=== PATIENT | female | born 1965 | race Caucasian/White ===

== ENCOUNTER → 2018-10-07 15:38 | Outpatient (CLI) | payer OTHER, SELFPAY | PROVIDERS: Obstetrics & Gynecology; Family Provider Family Medicine; PCP Family Medicine; Visit Provider Family Medicine | DX: N95.1 Menopausal and female climacteric states (principal) | CPT/HCPCS: 36415; 83001 ==

== ENCOUNTER → 2020-11-08 16:15 | Outpatient (CLI) | payer OTHER, SELFPAY ==
[2020-11-08 18:33] LABS: Alanine Aminotransferase 29 IU/L (<35); Albumin 4.4 g/dL (3.5-5.0); Albumin Globulin Ratio 1.6 (1.0-2.8); Alkaline Phosphatase 78 U/L (38-126); Aspartate Aminotransferase 35 IU/L (14-36); BUN Creatinine Ratio 29.5 (6-22); Bilirubin Total 0.5 mg/dL (0.2-1.3); Blood Urea Nitrogen 28 mg/dL (7-17); Calcium 9.6 mg/dL (8.4-10.2); Carbon Dioxide 29 mmol/L (22-32); Chloride 95 mmol/L (98-107); Cholesterol 251 mg/dL (140-199); Estimated Glomerular Filt Rate > 60.0 mL/min (>60); Globulin 2.7 g/dL (1.7-4.1); Glucose 98 mg/dL (70-100); HDL Cholesterol 42 mg/dL (40-60); HEMOLYSIS < 15 (0-50); LDL Cholesterol Calculated 159 mg/dL (<100); Potassium 4.3 mmol/L (3.4-5.1); Sodium 133 mmol/L (137-145); Total Protein 7.1 g/dL (6.3-8.2); Triglycerides 251 mg/dL (35-150)
== END ==
PROVIDERS: Family Provider Family Medicine; PCP Family Medicine; Referring Provider Family Medicine; Visit Provider Family Medicine
DX: E55.9 Vitamin D deficiency, unspecified (principal); E78.1 Pure hyperglyceridemia; I10 Essential (primary) hypertension; R73.03 Prediabetes
CPT/HCPCS: 36415; 80053; 80061

== ENCOUNTER → 2020-12-20 15:35 | Outpatient (CLI) | payer OTHER, SELFPAY ==
[2020-12-20] MEDS: COVID-19 VACC #1, MRNA(MOD) 100 MCG/0.5 ML VIAL IM (15:45)
== END ==
PROVIDERS: Family Provider Family Medicine; PCP Family Medicine; Visit Provider Internal Medicine
DX: Z23 Encounter for immunization (principal)
CPT/HCPCS: 0011A; 91301

== ENCOUNTER → 2021-01-17 15:26 | Outpatient (CLI) | payer OTHER, SELFPAY ==
[2021-01-17] MEDS: COVID-19 VACC #2, MRNA(MOD) 100 MCG/0.5 ML VIAL IM (15:42)
== END ==
PROVIDERS: Family Provider Family Medicine; PCP Family Medicine; Visit Provider Internal Medicine
DX: Z23 Encounter for immunization (principal)
CPT/HCPCS: 0012A; 91301

== ENCOUNTER → 2021-02-14 16:19 | Outpatient (CLI) | payer OTHER, SELFPAY ==
--- NOTE | 2021-02-14 16:20 | DI.MG.S_ITS ---
BILATERAL DIGITAL SCREENING MAMMOGRAM 3D/2D WITH CAD: 02/14/2021 CLINICAL: Routine screening. Comparison is made to exams dated: 10/27/2017 mammogram and 09/13/2016 mammogram - [facility]. The tissue of both breasts is predominantly fatty. Current study was also evaluated with a Computer Aided Detection (CAD) system. There is a new fine calcification in the left breast sub-areolar depth central to the nipple seen on the craniocaudal view only. No other significant masses, calcifications, or other findings are seen in either breast. IMPRESSION: INCOMPLETE: NEEDS ADDITIONAL IMAGING EVALUATION The new fine calcification in the left breast is indeterminate. Magnification views are recommended. This exam was interpreted at Station ID: [id number]. NOTE: For mammograms, a report in lay terms will be sent to the patient. Approximately 15% of breast malignancies will not be visualized mammographically. In the management of a palpable breast mass, a negative mammogram must not discourage biopsy of a clinically suspicious lesion. Electronically Signed By: Vasile Benedict acr/:02/14/2021 17:06:04 letter sent: Additional Imaging Needed ACR BI-RADS Category 0: Incomplete 3340F
== END ==
PROVIDERS: Family Provider Family Medicine; PCP Family Medicine; Referring Provider Family Medicine; Visit Provider Family Medicine
DX: Z12.31 Encounter for screening mammogram for malignant neoplasm of breast (principal)
CPT/HCPCS: 77063; 77067

== ENCOUNTER → 2021-03-12 14:26 | Outpatient (CLI) | payer OTHER, SELFPAY ==
[2021-03-12 16:17] LABS: COVID19 -Nasal RAPID Negative (Negative)
== END ==
PROVIDERS: Family Provider Family Medicine; PCP Family Medicine; Visit Provider Surgery
DX: Z20.822 Contact with and (suspected) exposure to COVID-19 (principal)
CPT/HCPCS: 87635; C9803

== ENCOUNTER 2021-03-13 13:36 | Day surgery (SDC) | payer OTHER, SELFPAY ==
[2021-03-13] VITALS (7 sets, daily range): BP systolic 94–125; BP diastolic 53–76; PULSE 76–91; RESP 18–24; TEMP 36.8–37.5; O2SAT 80–98; BMI 42.3
[2021-03-13] MEDS: SODIUM CHLORIDE 0.9% 1,000 ML 200 ML IV (14:07)
--- NOTE | 2021-03-13 14:20 | PM.HP.1 ---
History of Present Illness History of Present Illness Date Patient Seen: 03/13/21 Time Patient Seen: 14:20 Chief complaint: SDC Narrative: This is a 55-year-old woman who is here for a 5 year follow-up colonoscopy due to family history of rectal cancer in her mother. This patient had a colonoscopy 6 years ago which was reportedly normal per the patient. She denies any new symptoms, specifically denies any melena, hematochezia, unexplained abdominal pain, unexplained weight loss. She has morbid obesity, and hypertension. She has sleep apnea. ROS: Thirteen system review is otherwise negative other than as mentioned below and in HPI. PE: GENERAL: Well groomed and cooperative. Morbidly obese Appears stated age. Answers questions promptly and appropriately. Vital signs noted. HENT: Normocephalic, atraumatic. Hearing intact. EYES: Conjunctiva pink, sclera white, no periorbital swelling. CARDIOVASCULAR: Regular rate. No pedal edema. RESPIRATORY: Non-tachypneic, breathing comfortably on room air. GASTROINTESTINAL: Abdomen soft and non-distended GENITALURINARY: No flank tenderness. MUSCULOSKELETAL: Equal tone and mass bilaterally. SKIN: Warm, dry, soft, appropriate color for ethnicity. No other lesions, rashes, or wounds. NEURO: Alert and Oriented X 3. No gross sensory deficits, or cognitive issues. PSYCH: Appropriate affect and mood. Patient History Medical History Abnormal Pap smear of cervix Basal cell carcinoma (BCC) of upper back (09/04/16) Chicken pox (1967) Genital warts Rosacea Scarlet fever (1982) Sleep apnea (2011) Surgical History Anesthesia History of basal cell carcinoma excision (09/04/16) History of colonoscopy (11/28/15) Status post tubal ligation (2004) Family & Social History Family History Father Prostate cancer Diabetes mellitus Hypertension High cholesterol COPD (chronic obstructive pulmonary disease) Grandfather Stroke Grandmother Diabetes mellitus Hypertension High cholesterol Heart attack Mother Age: 82 Colon cancer Diabetes mellitus Hypertension High cholesterol Grandmother Colon cancer Diabetes mellitus Hypertension High cholesterol Brother No problems noted. Brother No problems noted. Grandfather COPD (chronic obstructive pulmonary disease) Social History: household members significant other Tobacco & Substance use: Smoking Status Never smoker alcohol intake frequency holiday/special occasion Substance Use Type does not use Meds Home Medications and Allergies Home Medications Medication Instructions Recorded Confirmed Type timolol 0.5 %-dorzolamide 2 drp OPHTHALMIC (EYE) 11/13/20 03/12/21 History %-latanprost 0.005 % (PF) eye drops diclofenac sodium 50 mg See Rx Instructions .ROUTE 01/11/21 03/12/21 Rx tablet,delayed release .COMPLEX #60 tab lisinopril 20 See Rx Instructions .ROUTE 02/15/21 03/12/21 Rx mg-hydrochlorothiazide 12.5 mg .COMPLEX #90 tab tablet Allergies Allergy/AdvReac Type Severity Reaction Status Date / Time No Known Allergies Allergy Uncoded 03/12/21 14:25 Exam Vital Signs (past 8 hours): - 03/13/21 13:47 Temperature 98.9 F Pulse Rate 91 H Respiratory Rate 18 Blood Pressure 125/74 Pulse Oximetry 98 Oxygen Delivery Method Room Air Assessment & Plan Assessment and plan (1) Family history of colon cancer: Status: Acute Assessment & Plan narrative: Risks and benefits of screening colonoscopy and possible polypectomy were discussed with the patient including risk of bleeding, perforation, need for additional procedures, risks of anesthesia. The patient desires to proceed with the colonoscopy procedure. COVID-19 COVID-19 status: Negative Result date/Date tested (Pos, Neg/Pending): 03/12/21 Time Spent With Patient Time with patient: 15-24 minutes Quality VTE Deep Vein Thrombosis/Pulmonary Embolism Present on Admission: No
--- NOTE | 2021-03-13 14:22 | P.OP.ENDO_ITS ---
Operative Date/Time/Diagnoses Date of procedure: 03/13/21 Time of procedure: 14:22 Pre-op diagnosis: High risk family history colorectal cancer Post-op diagnosis: other ([id number] diverticulosis. No polyps found on today's exam.) Procedure & Clinicians Study performed: Colonoscopy Procedural sedation performed by the endoscopist Same procedure as scheduled: Yes Indications: High risk family history for colorectal cancer Surgeon: Cammy Eagle Procedure Notes SCOAP/Timeout: Performed Procedure in detail: The patient was brought to the room and placed in left lateral decubitus position with all bony prominences padded. A time-out was performed and then the patient was given procedural sedation starting with 4 mg of Versed and 100 mcg of fentanyl. An additional 2 mg of Versed and 50 micro g of fentanyl were given during the procedure. Vitals were monitored throughout the procedure and remained stable. Once adequately sedated, the procedure was begun. A rectal exam was performed revealing no abnormalities. The colonoscope was then introduced to the rectum and advanced to the cecum in the usual fashion. The cecum was identified by the appendiceal orifice, the mucosal tri- fold, and the ileocecal valve. Mild to moderate diverticulosis was seen in the descending and sigmoid colon. The scope was then retracted while rotating side to side and examining each mucosal fold. At the conclusion of the procedure retroflexion was performed and small grade 1-2 internal hemorrhoids without stigmata of bleeding were seen. The scope was then withdrawn from the rectum the procedure was concluded. The patient tolerated the procedure well and was transferred to the PACU in stable condition. Scope withdrawal time: 6 Findings: diverticulosis Specimen(s): none sent Complications: none Impression: No polyps. [id number] diverticulosis. Post-procedure Recommendations: Colonscopy in 5 years (Due to high risk family history) and High fiber diet Follow up: as needed Disposition: PACU
[2021-03-13] MEDS: MIDAZOLAM 5 MG/5 ML VIAL IV (14:30)
[2021-03-13] MEDS: fentaNYL 250 MCG/5 ML INJ IV (14:30)
== END 2021-03-13 15:17 | disposition home or self-care (01) ==
PROVIDERS: Family Provider Family Medicine; PCP Family Medicine; Referring Provider Surgery; Visit Provider Surgery
PROC: 0DJD8ZZ Inspection of Lower Intestinal Tract, Via Natural or Artificial Opening Endoscopic (ICD-10-PCS; CPT 45378; principal; 2021-03-13 14:30)
DX: Z12.11 Encounter for screening for malignant neoplasm of colon (principal); Z80.0 Family history of malignant neoplasm of digestive organs; G47.30 Sleep apnea, unspecified; K57.30 Diverticulosis of large intestine without perforation or abscess without bleeding; K64.0 First degree hemorrhoids
CPT/HCPCS: 45378; J2250; J3010

== ENCOUNTER → 2021-03-16 14:51 | Outpatient (CLI) | payer OTHER, SELFPAY ==
--- NOTE | 2021-03-16 | DI.MG.S_ITS ---
UNILATERAL LEFT DIGITAL DIAGNOSTIC MAMMOGRAM 3D/2D WITH ADDITIONAL VIEWS: 03/16/2021 CLINICAL: Additional evaluation requested from prior study. Comparison is made to exams dated: 02/14/2021 mammogram, 10/27/2017 mammogram, and 09/13/2016 mammogram - [facility]. The tissue of left breast is predominantly fatty. The benign fine calcification in the left breast sub-areolar depth central to the nipple seen on the craniocaudal view only is no longer seen. No other significant masses or calcifications are seen in the breast. IMPRESSION: BENIGN There is no mammographic evidence of malignancy. The calcifications seen on screening mammogram are no longer visualized and likely were dermal calcifications in the areola. A 1 year screening mammogram is recommended. This exam was interpreted at Station ID: [id number]. NOTE: For mammograms, a report in lay terms will be sent to the patient. Approximately 15% of breast malignancies will not be visualized mammographically. In the management of a palpable breast mass, a negative mammogram must not discourage biopsy of a clinically suspicious lesion. Electronically Signed By: Vasile Benedict acr/:03/16/2021 15:33:22 letter sent: Normal Exam ACR BI-RADS Category 2: Benign Finding(s) 3342F
== END ==
PROVIDERS: Family Provider Family Medicine; PCP Family Medicine; Referring Provider Family Medicine; Visit Provider Family Medicine
DX: R92.8 Other abnormal and inconclusive findings on diagnostic imaging of breast (principal); R92.1 Mammographic calcification found on diagnostic imaging of breast
CPT/HCPCS: 77065; G0279

== ENCOUNTER → 2021-10-22 15:56 | Outpatient (CLI) | payer OTHER, SELFPAY ==
--- NOTE | 2021-10-22 17:33 | DI.RAD.S_ITS ---
PROCEDURE: XR FINGER RT MIN 2V INDICATIONS: growth on DIP joint TECHNIQUE: AP hand, 2 views of the 1st finger(s) acquired. COMPARISON: None. FINDINGS: Bones: No acute fractures or dislocations. Osteoarthritic changes are seen in 1st interphalangeal joint with joint space narrowing and subchondral sclerosis. Small ext ostosis over radial and dorsal aspect of 1st distal phalangeal base is seen likely represent old healed avulsion injury. No suspicious bony lesions. Soft tissues: No suspicious soft tissue calcifications. IMPRESSION: Likely old healed avulsion injury involving radial and dorsal aspect of 1st distal phalangeal base. 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 No acute fracture or dislocation. Dictated by: Nicholas Mallory M.D. on 10/22/2021 at 20:26 Approved by: Nicholas Mallory M.D. on 10/22/2021 at 20:27
== END ==
PROVIDERS: Family Provider Family Medicine; PCP Family Medicine; Referring Provider Family Medicine; Visit Provider Family Medicine
DX: R22.30 Localized swelling, mass and lump, unspecified upper limb (principal)
CPT/HCPCS: 73140

== ENCOUNTER → 2023-02-07 06:32 | Outpatient (CLI) | payer OTHER, SELFPAY ==
[2023-02-07 08:38] LABS: Add Manual Diff / Slide Review NO; Basophils Absolute Auto 100 /uL (0-100); Eosinophils Absolute Auto 200 /uL (0-450); Eosinophils Percent Auto 2.7 % (2-4); Hemoglobin 13.7 g/dL (12.0-16.0); Lymphocytes Absolute Auto 1500 /uL (1100-4500); Mean Corpuscular HGB Conc 34.2 % (30-36); Mean Corpuscular Hemoglobin 30.8 PG (26-34); Mean Corpuscular Volume 90.2 fL (80-100); Monocytes Absolute Auto 300 /uL (0-900); Monocytes Percent Auto 5.6 % (3-14); Neutrophils Absolute Auto 3900 /uL (1500-7000); Neutrophils Percent Auto 65.7 % (50-75); Platelet Count 306 X10^3/uL (150-400); Red Blood Cell Count 4.44 X10^6/uL (4.0-5.2); White Blood Cell Count 5.9 X10^3/uL (4.5-11.0)
[2023-02-07 08:49] LABS: Alanine Aminotransferase 35 IU/L (<35); Albumin 4.2 g/dL (3.5-5.0); Albumin Globulin Ratio 1.8 (1.0-2.8); Alkaline Phosphatase 60 U/L (38-126); Aspartate Aminotransferase 35 IU/L (14-36); BUN Creatinine Ratio 22.4 (6-22); Bilirubin Total 0.4 mg/dL (0.2-1.3); Blood Urea Nitrogen 19 mg/dL (7-17); Calcium 9.3 mg/dL (8.4-10.2); Carbon Dioxide 30 mmol/L (22-32); Chloride 101 mmol/L (98-107); Cholesterol 194 mg/dL (140-199); Estimated Glomerular Filt Rate > 60 mL/min (>60); Globulin 2.4 g/dL (1.7-4.1); Glucose 102 mg/dL (70-100); HDL Cholesterol 41 mg/dL (40-60); HEMOLYSIS < 15 (0-50); LDL Cholesterol Calculated 115 mg/dL (<100); Potassium 4.6 mmol/L (3.4-5.1); Sodium 138 mmol/L (137-145); Total Protein 6.6 g/dL (6.3-8.2); Triglycerides 188 mg/dL (35-150)
[2023-02-07 09:21] LABS: Vitamin D 25 Hydroxy (D3) 27.7 ng/mL (30.0-100.0)
[2023-02-07 09:22] LABS: Creatinine Urine Random 69.7 mg/dL
[2023-02-07 09:27] LABS: Microalbumi Creatinin Ratio Ur 14.3 ug/mg CR (<30)
[2023-02-08 01:54] LABS: Labcorp Hemoglobin (Hb) A1c 5.8 % (4.8-5.6)
== END ==
PROVIDERS: Family Provider Family Medicine; PCP Family Medicine; Referring Provider Family Medicine; Visit Provider Family Medicine
DX: E55.9 Vitamin D deficiency, unspecified (principal); E66.01 Morbid (severe) obesity due to excess calories; E78.2 Mixed hyperlipidemia; I10 Essential (primary) hypertension; R73.03 Prediabetes; Z00.00 Encounter for general adult medical examination without abnormal findings; Z68.41 Body mass index [BMI] 40.0-44.9, adult
CPT/HCPCS: 36415; 80053; 80061; 82043; 82306; 82570; 83036; 85025

== ENCOUNTER → 2023-07-01 16:14 | Outpatient (CLI) | payer OTHER, SELFPAY ==
--- NOTE | 2023-07-01 16:15 | DI.MG.S_ITS ---
BILATERAL DIGITAL SCREENING MAMMOGRAM 3D/2D WITH CAD: 07/01/2023 CLINICAL: Routine screening. Comparison is made to exams dated: 02/14/2021 mammogram, 10/27/2017 mammogram, and 03/16/2021 mammogram - [facility]. Both breasts are almost entirely fatty (category a/<25% glandular tissue). Current study was also evaluated with a Computer Aided Detection (CAD) system. No significant masses, calcifications, or other findings are seen in either breast. There has been no significant interval change. IMPRESSION: NEGATIVE There is no mammographic evidence of malignancy. A 1 year screening mammogram is recommended. Based on the Tyrer Cuzick model (a risk assessment model) the patient's lifetime risk is 4.5% and her 10 year risk is 1.6%. According to the ACR, ACS, and NCCN guidelines, an annual breast MRI exam along with mammogram is recommended if the patient's lifetime risk is 20% or greater. This exam was interpreted at Station ID: [id number]. NOTE: For mammograms, a report in lay terms will be sent to the patient. Approximately 15% of breast malignancies will not be visualized mammographically. In the management of a palpable breast mass, a negative mammogram must not discourage biopsy of a clinically suspicious lesion. Electronically Signed By: Ector moya/dana:07/02/2023 10:32:54 letter sent: Normal Exam ACR BI-RADS Category 1: Negative 3341F
== END ==
PROVIDERS: Family Provider Family Medicine; PCP Family Medicine; Referring Provider Family Medicine; Visit Provider Family Medicine
DX: Z12.31 Encounter for screening mammogram for malignant neoplasm of breast (principal)
CPT/HCPCS: 77063; 77067

== ENCOUNTER → 2024-02-06 08:52 | Outpatient (CLI) | payer OTHER, SELFPAY ==
[2024-02-06 10:47] LABS: Hemoglobin A1C% w Est Avg Glu 5.7 % (4.0-6.0)
[2024-02-06 11:03] LABS: Alanine Aminotransferase 24 IU/L (<35); Albumin 4.4 g/dL (3.5-5.0); Albumin Globulin Ratio 1.9 (1.0-2.8); Alkaline Phosphatase 72 U/L (38-126); Aspartate Aminotransferase 25 IU/L (14-36); BUN Creatinine Ratio 26.2 (6-22); Bilirubin Total 0.7 mg/dL (0.2-1.3); Blood Urea Nitrogen 22 mg/dL (7-17); Calcium 9.6 mg/dL (8.4-10.2); Carbon Dioxide 28 mmol/L (22-32); Chloride 103 mmol/L (98-107); Cholesterol 237 mg/dL (140-199); Estimated Glomerular Filt Rate > 60 mL/min (>60); Globulin 2.3 g/dL (1.7-4.1); Glucose 92 mg/dL (70-100); HDL Cholesterol 49 mg/dL (40-60); HEMOLYSIS < 15 (0-50); LDL Cholesterol Calculated 146 mg/dL (<100); Potassium 4.5 mmol/L (3.4-5.1); Sodium 137 mmol/L (137-145); Total Protein 6.7 g/dL (6.3-8.2); Triglycerides 209 mg/dL (35-150)
[2024-02-06 11:06] LABS: High Sensitivity CRP - Cardiac 5.3 mg/L (1.0-3.0)
[2024-02-06 11:20] LABS: Vitamin D 25 Hydroxy (D3) 55.9 ng/mL (30.0-100.0)
== END ==
PROVIDERS: Family Provider Family Medicine; PCP Family Medicine; Referring Provider Family Medicine; Visit Provider Family Medicine
DX: E78.2 Mixed hyperlipidemia (principal); E55.9 Vitamin D deficiency, unspecified; I10 Essential (primary) hypertension; E78.1 Pure hyperglyceridemia
CPT/HCPCS: 36415; 80053; 80061; 82306; 83036; 86140

== ENCOUNTER 2024-08-06 13:00 | Outpatient (RCR) | payer OTHER, SELFPAY ==
--- NOTE | 2024-07-19 17:54 | PT.OIE ---
Current Diagnoses Constipation, unspecified (07/19/24) Stiffness of unspecified hip, not elsewhere classified (07/19/24) Muscle weakness (generalized) (07/19/24) Mixed incontinence (07/19/24) Unspecified urinary incontinence (07/19/24) Past Medical History (Last Reviewed 12/13/21 @ 16:20 by Marcelle Stuart MD) Abnormal Pap smear of cervix Basal cell carcinoma (BCC) of upper back (09/04/16) Chicken pox (1967) Diverticulosis of colon (~03/2021) Genital warts History of COVID-19 Obesity Rosacea Scarlet fever (1982) Sleep apnea (2011) Past Surgical History (Last Reviewed 03/13/21 @ 14:21 by Cammy Eagle MD) Anesthesia History of basal cell carcinoma excision (09/04/16) History of colonoscopy (11/28/15) Status post tubal ligation (2004) Visit Care Team Role Provider Type Sahra Kothari DO Family Provider Physician Specialty: Family Practice Address: [address] [place] [address], [id number] Email: [email or web address] Lowe DO Attending Provider Physician Primary Care Provider Referring Provider Specialty: Medical Address: [address] [place] [address], [id number] Email: [email or web address] Physical Therapy Initial Evaluation PT-OP-A Visit Information Start: 07/13/24 18:39 Freq: Status: Active Protocol: Document 07/19/24 13:02 LRN (Rec: 07/19/24 17:26 LRN [id number]) Out-Patient Physical Therapy Visit Information Visit Information Visit Type Initial Evaluation Visit Start Time 13:02 Visit Stop Time 13:46 Visit Number 1 Evaluation Information Evaluation Date 07/19/24 Precautions Precautions Cystocele grade 3, Tubal ligation, blood pressure controlled by meds. BMI 44.8. Pt reports osteoarthritis of knees. PT-OP-B Current Condition Start: 07/13/24 18:39 Freq: Status: Active Protocol: Document 07/19/24 13:02 LRN (Rec: 07/19/24 17:26 [facility] [id number]) Current Condition History of Current Condition Onset Date Worsening urinary incontinence a year ago Current Complaints Urinary leakage with body jerk , lifting heavy objects, OOB first in AM History of Current Condition Pt reports 38 yrs ago after having children she had uinary incontinence with coughing or sneezing, in past yr her leaking has worsened. If her body gets jerked/jolted she leaks and first thing in the mornings if doesn't get out of bed (OOB) immediately she leaks. States she was told she has organ prolapse, but organ unknown. Prior Treatments and Tests None. Treatment Goals Patient/Caregiver Goals Pt goals: -stop urinary leakage. -be able to stop urine flow to get a urine sample. -be able to get to bathroom first in the morning without leaking. -HEP participation. Current Functional Impairments (Reported) Functional Limitations- ADL's Works at [employer] and must take random drug tests, not able to stop flow of urine to collect urine sample. 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 Not limited in when to go to bathroom. Personal Factors Other Personal Factors That May Effect Hx of 2 vaginal births of big Therapy/Recovery babies with tearing (home births), tubal ligation. 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 PT-OP-C Subjective Start: 07/13/24 18:39 Freq: Status: Active Protocol: Document 07/19/24 13:02 LRN (Rec: 07/19/24 17:26 [facility] [id number]) Patient Questionnaires Pelvic Pain and Urgency/Frequency Patient Symptom Scale Pelvic Pain Score 6 PT-OP-I Pelvic Floor Start: 07/13/24 18:39 Freq: Status: Active Protocol: Document 07/19/24 13:02 LRN (Rec: 07/19/24 17:26 [facility] [id number]) Pelvic Floor Assessment Urine Urinary Symptoms Urge Sensation,Prolapse, Dribbling After Urination, Incomplete Emptying,Falling Out Feeling/Heavy Leakage Size Small Leakage Cause Cough,Lifting,Sneeze,Urge Other Leakage Causes Urge urinary leakage only first in the morning. Leaks Per Day 4-5x/day Nocturia 2-3x Pads Used In 24 Hours 1 Urine Pad Type Panty Liner Bowel Bowel Movement Frequency 1x/day or missing a day sometimes. [place] Stool Chart Type 1-7 4 Prolapse Cystocele Grade 3 Rectocele Grade 1 Prolapse Comments Standing cystocele grade 3 not past vaginal opening. Perineal Descent Resting Present Bearing Present Contraction Ability Voluntary Contraction Weak Voluntary Relaxation Moderate Manual Muscle Testing Left 2 Manual Muscle Testing Right 3 Manual Muscle Testing Anterior 1 Manual Muscle Testing Posterior 3 Muscle Endurance (Seconds) 3 Number of Quick Contractions In 10 5 Seconds PT-OP-J Posture/Palpation/Skin Start: 07/13/24 18:39 Freq: Status: Active Protocol: Document 07/19/24 13:02 LRN (Rec: 07/19/24 17:26 LRN [id number]) Posture Evaluation Position Standing Head/C-Spine Posture Forward Head L-Spine Posture Increased Lordosis Arm Posture (L) Internally Rotated,(R) Internally Rotated Pelvis Posture Anteriorly Tilted,(L) PSIS Posterior Weight Distribution Balanced Hip Posture (R) Externally Rotated Knee Posture (L) Genu Valgus,(R) Genu Valgus Ankle/Foot Posture (L) Calcaneal Eversion,(R) Calcaneal Eversion Comments Posture Comments C-curve with apex on left, dowagers hump, straightened upper T/S. PT-OP-K Range of Motion Start: 07/13/24 18:39 Freq: Status: Active Protocol: Document 07/19/24 13:02 LRN (Rec: 07/19/24 17:26 LRN [id number]) Lumbar Spine Range of Motion Lumbar Spine Active Degrees Testing Position Standing Flexion 88 Extension 5 Rotation Left 20 Rotation Right 10 Lateral Flexion Left 15 Lateral Flexion Right 10 Hip Goniometric Range of Motion Hip Right Passive Testing Position Supine Internal Rotation 30 External Rotation 45 Left Passive Testing Position Supine Internal Rotation 30 External Rotation 30 PT-OP-M Strength Start: 07/13/24 18:39 Freq: Status: Active Protocol: Document 07/19/24 13:02 LRN (Rec: 07/19/24 17:26 LRN [id number]) Trunk Strength Trunk Manual Muscle Testing Core Stabilization Pt is not able to maintain core stability with MMT of LE' s. Hip Strength Hip Manual Muscle Testing Right Flexion (L2) 3 Fair Abduction 4 Good Adduction 2- Poor- External Rotation 4+ Good+ Comments Strength is 5/5 except as indicated above. Left Flexion (L2) 3+ Fair+ Abduction 3 Fair Adduction 2+ Poor+ External Rotation 3+ Fair+ Comments Strength is 5/5 except as indicated above. PT-OP-Q Treatments Start: 07/13/24 18:39 Freq: Status: Active Protocol: Document 07/19/24 13:02 LRN (Rec: 07/19/24 17:26 [facility] [id number]) Self-Care/Home Management Treatment Education Other Education Discussed results of evaluation, goals, treatment, and plan of care (POC) with pt , discussed attendance/cx/dns policy; pt agreeable to evaluation, goals, treatment, attendance/cx/dns policy and POC. Discussed and educated pt in specifics for completion of in use of Bladder Diary and I/S in tracking for 1 week. Activities Self-Care/Home Management Activities Issued & reviewed HEP: Kegel ex's and discussed exercise of Quick Flicks, Long Holds and Aggravators (cough, sneeze, up first in AM). PT-OP-T Assessment and Plan Start: 07/13/24 18:39 Freq: Status: Active Protocol: Document 07/19/24 13:02 LRN (Rec: 07/19/24 17:26 [facility] [id number]) Physical Therapy Assessment Rehab Potential Rehabilitation Potential Good Evaluation Complexity Number of Personal Factors/Comorbidities 1-2 Number of Body Systems Impaired 4 or More Clinical Presentation at Evaluation Evolving Impairments Impairments Activity Tolerance, Coordination,Posture,ROM, Strength,Transfers Other Impairments Mixed urinary incontinence. Grade 3 Cystocele. Coordination of Kegel and breath to manage her core pressure. Goals Three Impairment Urinary leakage due to PF weakness. Short Term Goal (STG) Improve hip mobility symmetry and pelvic stabilization to improve pelvic floor strength to generally 2/5. STG Duration 09/17/24 Nursing Home Goal (LTG) Increase PF strength to 3/5 with elimination of urinary leakage and pt able to stop urine flow to give a urine sample while at work. LTG Duration 10/15/24 Two Impairment Urge incontinence Short Term Goal (STG) Pt will be able to defer an urge with use of urge deference technique. STG Duration 08/06/24 [facility] Goal (LTG) Pt will be able to get to bathroom first in the morning without urinary leaking. LTG Duration 10/15/24 One Impairment Pt lacks an independent self care HEP. Short Term Goal (STG) Pt educated and able to demonstrate coordination of breath and Kegels with daily transfers to lessen core abdominal pressure. STG Duration 09/03/24 [facility] Goal (LTG) Pt will be independent and participating in a self care HEP for PF/hip/pelvis/core strengthening with core pressure mgmt. 07/19/24: HEP: Kegel ex's and discussed exercise of Quick Flicks, Long Holds and Aggravators (cough, sneeze, up first in AM). 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 The pt's bladder is protruding very close the the vaginal opening and will need further assessment with possible surgical consult if it extends past her vaginal opening. The pt will benefit from skilled physical therapy for PF/hip/pelvic strengthening, ROM (hip/core) ex's, manual therapy for pelvic corrections as needed, thera act ex's to promote proper transfers & body mechanics to reduce inner core pressure and for pt education to reduce core pressure and coordinate kegels and breath with transfer/body mechanics/ ADLs. Physical Therapy Plan Frequency and Duration Frequency of Treatment 1x/Week Duration of treatment (weeks) 12 Plan of Care Start Date 07/19/24 Plan of Care End Date 10/15/24 Therapeutic Interventions Therapeutic Interventions Home Exercise Program,Joint Mobilizations,Manual Therapy, Neuromuscular Re-education, Self-Care/Home Management,Soft Tissue Mobilization, Therapeutic Activities, Therapeutic Exercises Modalities Biofeedback,Cold Pack/Ice Massage,Hot Packs Next Visit Focus/Plan Next Note Type Treatment Note Next Visit Plan Review bladder/bowel diary, pt education in bladder retraining with urge deference technique and bowel care with bowel massage, proper Kegel on wedge without use of substitute muscles, core pressure management, deep breathing, and proper coordinated breathing with transfers and body mechanics. Ther Ex: PF/core/hip strengthening (hip flex, AB, AD, ER, general core), asymmetry of trunk/hip mobility (decreased trunk R rot/L SB (C-curve, L apex), decreased L>R hip ER PROM). Educate pt in proper posture with awareness of her postural changes (lordosis, posterior L PSIS, R hip in ER), discuss stool types, foods, water intake, educate & discuss Bowel massage, proper sit to stand, and moving in bed using breathwork and core/PF stabilization for proper abdominal pressure system. POC: Pt education , self care management, manual therapy (bladder/uterus lift), ?biofeedback with vaginal sensor, therapeutic exercises, therapeutic activities, and neuromuscular reeducation.
--- NOTE | 2024-07-19 17:54 | PT.OPPOC ---
Physical, Occupational & Speech Therapy At [facility] Current Diagnoses Constipation, unspecified (07/19/24) Stiffness of unspecified hip, not elsewhere classified (07/19/24) Muscle weakness (generalized) (07/19/24) Mixed incontinence (07/19/24) Unspecified urinary incontinence (07/19/24) Visit Care Team Role Provider Type Sahra Kothari DO Family Provider Physician Specialty: Family Practice Address: [address] [place] [address] [place] [address], [id number] Email: [email or web address] Li Lowe DO Attending Provider Physician Primary Care Provider Referring Provider Specialty: Medical Address: [address] [place] [address], [facility] [address], [place], [address] Email: [email or web address] Plan Of Care PT-OP-B Current Condition Start: 07/13/24 18:39 Freq: Status: Active Protocol: Document 07/19/24 13:02 LRN (Rec: 07/19/24 17:26 LRN [id number]) Current Condition History of Current Condition Onset Date Worsening urinary incontinence a year ago Current Complaints Urinary leakage with body jerk , lifting heavy objects, OOB first in AM History of Current Condition Pt reports 38 yrs ago after having children she had uinary incontinence with coughing or sneezing, in past yr her leaking has worsened. If her body gets jerked/jolted she leaks and first thing in the mornings if doesn't get out of bed (OOB) immediately she leaks. States she was told she has organ prolapse, but organ unknown. Prior Treatments and Tests None. Treatment Goals Patient/Caregiver Goals Pt goals: -stop urinary leakage. -be able to stop urine flow to get a urine sample. -be able to get to bathroom first in the morning without leaking. -HEP participation. Current Functional Impairments (Reported) Functional Limitations- ADL's Works at [employer] and must take random drug tests, not able to stop flow of urine to collect urine sample. 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 Not limited in when to go to bathroom. Personal Factors Other Personal Factors That May Effect Hx of 2 vaginal births of big Therapy/Recovery babies with tearing (home births), tubal ligation. 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 PT-OP-T Assessment and Plan Start: 07/13/24 18:39 Freq: Status: Active Protocol: Document 07/19/24 13:02 LRN (Rec: 07/19/24 17:26 LRN [id number]) Physical Therapy Assessment Rehab Potential Rehabilitation Potential Good Evaluation Complexity Number of Personal Factors/Comorbidities 1-2 Number of Body Systems Impaired 4 or More Clinical Presentation at Evaluation Evolving Impairments Impairments Activity Tolerance, Coordination,Posture,ROM, Strength,Transfers Other Impairments Mixed urinary incontinence. Grade 3 Cystocele. Coordination of Kegel and breath to manage her core pressure. Goals Three Impairment Urinary leakage due to PF weakness. Short Term Goal (STG) Improve hip mobility symmetry and pelvic stabilization to improve pelvic floor strength to generally 2/5. STG Duration 09/17/24 Group Home Goal (LTG) Increase PF strength to 3/5 with elimination of urinary leakage and pt able to stop urine flow to give a urine sample while at work. LTG Duration 10/15/24 Two Impairment Urge incontinence Short Term Goal (STG) Pt will be able to defer an urge with use of urge deference technique. STG Duration 08/06/24 Mini Lab Operator Goal (LTG) Pt will be able to get to bathroom first in the morning without urinary leaking. LTG Duration 10/15/24 One Impairment Pt lacks an independent self care HEP. Short Term Goal (STG) Pt educated and able to demonstrate coordination of breath and Kegels with daily transfers to lessen core abdominal pressure. STG Duration 09/03/24 Group Home Goal (LTG) Pt will be independent and participating in a self care HEP for PF/hip/pelvis/core strengthening with core pressure mgmt. 07/19/24: HEP: Kegel ex's and discussed exercise of Quick Flicks, Long Holds and Aggravators (cough, sneeze, up first in AM). 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 The pt's bladder is protruding very close the the vaginal opening and will need further assessment with possible surgical consult if it extends past her vaginal opening. The pt will benefit from skilled physical therapy for PF/hip/pelvic strengthening, ROM (hip/core) ex's, manual therapy for pelvic corrections as needed, thera act ex's to promote proper transfers & body mechanics to reduce inner core pressure and for pt education to reduce core pressure and coordinate kegels and breath with transfer/body mechanics/ ADLs. Physical Therapy Plan Frequency and Duration Frequency of Treatment 1x/Week Duration of treatment (weeks) 12 Plan of Care Start Date 07/19/24 Plan of Care End Date 10/15/24 Therapeutic Interventions Therapeutic Interventions Home Exercise Program,Joint Mobilizations,Manual Therapy, Neuromuscular Re-education, Self-Care/Home Management,Soft Tissue Mobilization, Therapeutic Activities, Therapeutic Exercises Modalities Biofeedback,Cold Pack/Ice Massage,Hot Packs Next Visit Focus/Plan Next Note Type Treatment Note Next Visit Plan Review bladder/bowel diary, pt education in bladder retraining with urge deference technique and bowel care with bowel massage, proper Kegel on wedge without use of substitute muscles, core pressure management, deep breathing, and proper coordinated breathing with transfers and body mechanics. Ther Ex: PF/core/hip strengthening (hip flex, AB, AD, ER, general core), asymmetry of trunk/hip mobility (decreased trunk R rot/L SB (C-curve, L apex), decreased L>R hip ER PROM). Educate pt in proper posture with awareness of her postural changes (lordosis, posterior L PSIS, R hip in ER), discuss stool types, foods, water intake, educate & discuss Bowel massage, proper sit to stand, and moving in bed using breathwork and core/PF stabilization for proper abdominal pressure system. POC: Pt education , self care management, manual therapy (bladder/uterus lift), ?biofeedback with vaginal sensor, therapeutic exercises, therapeutic activities, and neuromuscular reeducation. Plan of Care Dates Plan of Care Start Date 07/19/24 Plan of Care End Date 10/15/24 Electronically Signed by: Shabnam Vazquez, PT 07/19/24 [id number] If you are in agreement with this Plan of Care, please return a signed and dated copy. I have reviewed this Plan of Care and certify that the skilled therapy services above are required to meet the patient?s needs. Physician Signature Date Printed Name and Credentials Clinical Instructor Signature Printed Name and Credentials
--- NOTE | 2024-07-26 13:32 | PT-OP ANOTE ---
Pt attends to therapy today after a 4 month break, reporting she had a stress heart attack 04/08/24 and was given the okay for her to continue with all activities by Dr. Jordan Aldrich at [facility] cardiology in [place], the first week after the heart attack. States she is fully recovered and had an ecocardiogram 1.5 wks ago and is fine, but on cholestrol meds. Pt has not talked to referring MD. She is still using the estrogen patch and cream 3x/week. Per phone conversation with Jessica, linen checker at [facility], a verbal okay to resume activities could not be given because Dr. Aldrich or his nurse were not present. It was suggested that the pt reschedule PT until clearance can be given. I requested, that if Dr. Aldrich felt it appropriate, that he send a fax/referral for clearance to resume PF physical therapy. PT dept phone number and fax number was given to Jessica. Pt was rescheduled for next week for recheck and new plan of care.
--- NOTE | 2024-07-26 15:14 | PT.OTN ---
Current Diagnoses Constipation, unspecified (07/26/24) Stiffness of unspecified hip, not elsewhere classified (07/26/24) Muscle weakness (generalized) (07/26/24) Mixed incontinence (07/26/24) Unspecified urinary incontinence (07/26/24) Physical Therapy Treatment Note PT-OP-A Visit Information Start: 07/13/24 18:39 Freq: Status: Active Protocol: Document 07/26/24 13:45 LRN (Rec: 07/26/24 14:29 LRN [id number]) Out-Patient Physical Therapy Visit Information Visit Information Visit Type Treatment Note Visit Start Time 13:45 Visit Stop Time 14:26 Visit Number 2 Evaluation Information Evaluation Date 07/19/24 Precautions Precautions Cystocele grade 3, Tubal ligation, blood pressure controlled by meds. BMI 44.8. Pt reports osteoarthritis of knees. PT-OP-B Current Condition Start: 07/13/24 18:39 Freq: Status: Active Protocol: Document 07/19/24 13:02 LRN (Rec: 07/19/24 17:26 LRN [id number]) Current Condition History of Current Condition Onset Date Worsening urinary incontinence a year ago Current Complaints Urinary leakage with body jerk , lifting heavy objects, OOB first in AM History of Current Condition Pt reports 38 yrs ago after having children she had uinary incontinence with coughing or sneezing, in past yr her leaking has worsened. If her body gets jerked/jolted she leaks and first thing in the mornings if doesn't get out of bed (OOB) immediately she leaks. States she was told she has organ prolapse, but organ unknown. Prior Treatments and Tests None. Treatment Goals Patient/Caregiver Goals Pt goals: -stop urinary leakage. -be able to stop urine flow to get a urine sample. -be able to get to bathroom first in the morning without leaking. -HEP participation. Current Functional Impairments (Reported) Functional Limitations- ADL's Works at [employer] and must take random drug tests, not able to stop flow of urine to collect urine sample. 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 Not limited in when to go to bathroom. Personal Factors Other Personal Factors That May Effect Hx of 2 vaginal births of big Therapy/Recovery babies with tearing (home births), tubal ligation. 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 PT-OP-C Subjective Start: 07/13/24 18:39 Freq: Status: Active Protocol: Document 07/26/24 13:45 LRN (Rec: 07/26/24 14:29 LRN [id number]) OP-PT Subjective Patient Comments Patient Comments Doing Kegels, no change. PT-OP-I Pelvic Floor Start: 07/13/24 18:39 Freq: Status: Active Protocol: Document 07/19/24 13:02 LRN (Rec: 07/19/24 17:26 LRN [id number]) Pelvic Floor Assessment Urine Urinary Symptoms Urge Sensation,Prolapse, Dribbling After Urination, Incomplete Emptying,Falling Out Feeling/Heavy Leakage Size Small Leakage Cause Cough,Lifting,Sneeze,Urge Other Leakage Causes Urge urinary leakage only first in the morning. Leaks Per Day 4-5x/day Nocturia 2-3x Pads Used In 24 Hours 1 Urine Pad Type Panty Liner Bowel Bowel Movement Frequency 1x/day or missing a day sometimes. Felda Stool Chart Type 1-7 4 Prolapse Cystocele Grade 3 Rectocele Grade 1 Prolapse Comments Standing cystocele grade 3 not past vaginal opening. Perineal Descent Resting Present Bearing Present Contraction Ability Voluntary Contraction Weak Voluntary Relaxation Moderate Manual Muscle Testing Left 2 Manual Muscle Testing Right 3 Manual Muscle Testing Anterior 1 Manual Muscle Testing Posterior 3 Muscle Endurance (Seconds) 3 Number of Quick Contractions In 10 5 Seconds PT-OP-J Posture/Palpation/Skin Start: 07/13/24 18:39 Freq: Status: Active Protocol: Document 07/19/24 13:02 LRN (Rec: 07/19/24 17:26 LRN [id number]) Posture Evaluation Position Standing Head/C-Spine Posture Forward Head L-Spine Posture Increased Lordosis Arm Posture (L) Internally Rotated,(R) Internally Rotated Pelvis Posture Anteriorly Tilted,(L) PSIS Posterior Weight Distribution Balanced Hip Posture (R) Externally Rotated Knee Posture (L) Genu Valgus,(R) Genu Valgus Ankle/Foot Posture (L) Calcaneal Eversion,(R) Calcaneal Eversion Comments Posture Comments C-curve with apex on left, dowagers hump, straightened upper T/S. PT-OP-K Range of Motion Start: 07/13/24 18:39 Freq: Status: Active Protocol: Document 07/19/24 13:02 LRN (Rec: 07/19/24 17:26 LRN [id number]) Lumbar Spine Range of Motion Lumbar Spine Active Degrees Testing Position Standing Flexion 88 Extension 5 Rotation Left 20 Rotation Right 10 Lateral Flexion Left 15 Lateral Flexion Right 10 Hip Goniometric Range of Motion Hip Right Passive Testing Position Supine Internal Rotation 30 External Rotation 45 Left Passive Testing Position Supine Internal Rotation 30 External Rotation 30 PT-OP-M Strength Start: 07/13/24 18:39 Freq: Status: Active Protocol: Document 07/19/24 13:02 LRN (Rec: 07/19/24 17:26 LRN [id number]) Trunk Strength Trunk Manual Muscle Testing Core Stabilization Pt is not able to maintain core stability with MMT of LE' s. Hip Strength Hip Manual Muscle Testing Right Flexion (L2) 3 Fair Abduction 4 Good Adduction 2- Poor- External Rotation 4+ Good+ Comments Strength is 5/5 except as indicated above. Left Flexion (L2) 3+ Fair+ Abduction 3 Fair Adduction 2+ Poor+ External Rotation 3+ Fair+ Comments Strength is 5/5 except as indicated above. PT-OP-Q Treatments Start: 07/13/24 18:39 Freq: Status: Active Protocol: Document 07/26/24 13:45 LRN (Rec: 07/26/24 14:29 LRN [id number]) Therapeutic Exercises Supine Exercises Deep Breathing Reps/Minutes 5' Comments Extra time to train awareness of abdominal vs chest breathing mechanics Sitting Exercises Urge deference technique Sitting Exercise Name Urge deference technique training. Reps/Minutes 5' Comments Cued to be calm while waiting for urge to decrease. Self-Care/Home Management Treatment Education Other Education Discussed at length, her bladder diary regarding number of voids, times between voids , voiding time, norms for fluid intake. Discussed at length, pt voiding schedule and bladder retraining possible needs, recommendations including drinking more fluids in AM, stopping 1-2 hrs before bedtime to decrease her nighttime voiding. Discussed voiding just in case before her drive home as being okay due to it is on the every 2 hr schedule as her work schedule . Discussed she use of bladder retraining to extend times between voids when no longer on her workplace breaktime schedule. Activities Self-Care/Home Management Activities Issued & reviewed HEP: Deep breathing & Urge deference technique. Issued handout for bladder irritants. PT-OP-T Assessment and Plan Start: 07/13/24 18:39 Freq: Status: Active Protocol: Document 07/26/24 13:45 LRN (Rec: 07/26/24 14:29 LRN [id number]) Physical Therapy Assessment Goals Three Impairment Urinary leakage due to PF weakness. Short Term Goal (STG) Improve hip mobility symmetry and pelvic stabilization to improve pelvic floor strength to generally 2/5. STG Duration 09/17/24 Parachute Rigger Goal (LTG) Increase PF strength to 3/5 with elimination of urinary leakage and pt able to stop urine flow to give a urine sample while at work. LTG Duration 10/15/24 Two Impairment Urge incontinence Short Term Goal (STG) Pt will be able to defer an urge with use of urge deference technique. 07/26/24: Pt educated in urge deference technique. STG Duration 08/06/24 progressed 07/26/24 [facility] Goal (LTG) Pt will be able to get to bathroom first in the morning without urinary leaking. LTG Duration 10/15/24 One Impairment Pt lacks an independent self care HEP. Short Term Goal (STG) Pt educated and able to demonstrate coordination of breath and Kegels with daily transfers to lessen core abdominal pressure. STG Duration 09/03/24 [facility] Goal (LTG) Pt will be independent and participating in a self care HEP for PF/hip/pelvis/core strengthening with core pressure mgmt. 07/19/24: HEP: Kegel ex's and discussed exercise of Quick Flicks, Long Holds and Aggravators (cough, sneeze, up first in AM). 07/26/24: HEP: Deep breathing LTG Duration 10/15/24 progressed 07/26/24 Assessment Summary Assessment Pt is a 58 yo female w/MIKE and grade 3 cystocele (bladder sitting close to vaginal opening) due to weak PF, lack of core pressure mgmt, sometimes constipation. Pt is receptive to information given regarding bladder diary, recommended changes and use of urge deference technique to avoid leakage first in AM. Pt was able to perform deep breathing properly in supine after training. Needs sitting training. Physical Therapy Plan Frequency and Duration Frequency of Treatment 1x/Week Duration of treatment (weeks) 12 Plan of Care Start Date 07/19/24 Plan of Care End Date 10/15/24 Next Visit Focus/Plan Next Note Type Treatment Note Next Visit Plan Review deep breathing in sitting and training in sitting. Assess response to change in her bladder diary with drinking more fluids in AM, stopping drinking 1-2 hrs before bedtime (to decr nighttime voiding), and if able to control urge (w/urge technique) to prevent rushing in bathroom with urge. Next: pt education in bowel care with bowel massage, proper Kegel on wedge without use of substitute muscles, Pt education of coordinated breathing with transfers, bed mobility and body mechanics using breathwork and core/PF stabilization for proper core pressure management. Ther Ex: PF/core/hip strengthening (hip flex, AB, AD, ER, general core), asymmetry of trunk/hip mobility (decreased trunk R rot/L SB (C-curve, L apex), decreased L>R hip ER PROM). Educate pt in proper posture with awareness of her postural changes (lordosis, posterior L PSIS, R hip in ER), discuss stool types, foods, educate & discuss proper sit to stand, and moving in bed using breathwork and core/PF stabilization for proper abdominal pressure system. POC: Pt education , self care management, manual therapy (bladder/uterus lift), ?biofeedback with vaginal sensor, therapeutic exercises, therapeutic activities, and neuromuscular reeducation.
--- NOTE | 2024-08-06 13:45 | PT.OTN ---
Current Diagnoses Constipation, unspecified (08/06/24) Stiffness of unspecified hip, not elsewhere classified (08/06/24) Muscle weakness (generalized) (08/06/24) Mixed incontinence (08/06/24) Unspecified urinary incontinence (08/06/24) Physical Therapy Treatment Note PT-OP-A Visit Information Start: 07/13/24 18:39 Freq: Status: Active Protocol: Document 08/06/24 13:00 LRN (Rec: 08/06/24 13:44 LRN [id number]) Out-Patient Physical Therapy Visit Information Visit Information Visit Type Treatment Note Visit Start Time 13:00 Visit Stop Time 13:40 Visit Number 3 Evaluation Information Evaluation Date 07/19/24 Precautions Precautions Cystocele grade 3, Tubal ligation, blood pressure controlled by meds. BMI 44.8. Pt reports osteoarthritis of knees. PT-OP-B Current Condition Start: 07/13/24 18:39 Freq: Status: Active Protocol: Document 07/19/24 13:02 LRN (Rec: 07/19/24 17:26 LRN [id number]) Current Condition History of Current Condition Onset Date Worsening urinary incontinence a year ago Current Complaints Urinary leakage with body jerk , lifting heavy objects, OOB first in AM History of Current Condition Pt reports 38 yrs ago after having children she had uinary incontinence with coughing or sneezing, in past yr her leaking has worsened. If her body gets jerked/jolted she leaks and first thing in the mornings if doesn't get out of bed (OOB) immediately she leaks. States she was told she has organ prolapse, but organ unknown. Prior Treatments and Tests None. Treatment Goals Patient/Caregiver Goals Pt goals: -stop urinary leakage. -be able to stop urine flow to get a urine sample. -be able to get to bathroom first in the morning without leaking. -HEP participation. Current Functional Impairments (Reported) Functional Limitations- ADL's Works at [employer] and must take random drug tests, not able to stop flow of urine to collect urine sample. 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 Not limited in when to go to bathroom. Personal Factors Other Personal Factors That May Effect Hx of 2 vaginal births of big Therapy/Recovery babies with tearing (home births), tubal ligation. 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 PT-OP-C Subjective Start: 07/13/24 18:39 Freq: Status: Active Protocol: Document 08/06/24 13:00 LRN (Rec: 08/06/24 13:44 LRN [id number]) OP-PT Subjective Patient Comments Patient Comments Hasn't been doing ex's. Drinking less by stop drinking 1-1.5 hrs before bedtime. Still waking 2x/night, couple times got up 1x/night. PT-OP-I Pelvic Floor Start: 07/13/24 18:39 Freq: Status: Active Protocol: Document 07/19/24 13:02 LRN (Rec: 07/19/24 17:26 LRN [id number]) Pelvic Floor Assessment Urine Urinary Symptoms Urge Sensation,Prolapse, Dribbling After Urination, Incomplete Emptying,Falling Out Feeling/Heavy Leakage Size Small Leakage Cause Cough,Lifting,Sneeze,Urge Other Leakage Causes Urge urinary leakage only first in the morning. Leaks Per Day 4-5x/day Nocturia 2-3x Pads Used In 24 Hours 1 Urine Pad Type Panty Liner Bowel Bowel Movement Frequency 1x/day or missing a day sometimes. [place] Stool Chart Type 1-7 4 Prolapse Cystocele Grade 3 Rectocele Grade 1 Prolapse Comments Standing cystocele grade 3 not past vaginal opening. Perineal Descent Resting Present Bearing Present Contraction Ability Voluntary Contraction Weak Voluntary Relaxation Moderate Manual Muscle Testing Left 2 Manual Muscle Testing Right 3 Manual Muscle Testing Anterior 1 Manual Muscle Testing Posterior 3 Muscle Endurance (Seconds) 3 Number of Quick Contractions In 10 5 Seconds PT-OP-J Posture/Palpation/Skin Start: 07/13/24 18:39 Freq: Status: Active Protocol: Document 07/19/24 13:02 LRN (Rec: 07/19/24 17:26 LRN [id number]) Posture Evaluation Position Standing Head/C-Spine Posture Forward Head L-Spine Posture Increased Lordosis Arm Posture (L) Internally Rotated,(R) Internally Rotated Pelvis Posture Anteriorly Tilted,(L) PSIS Posterior Weight Distribution Balanced Hip Posture (R) Externally Rotated Knee Posture (L) Genu Valgus,(R) Genu Valgus Ankle/Foot Posture (L) Calcaneal Eversion,(R) Calcaneal Eversion Comments Posture Comments C-curve with apex on left, dowagers hump, straightened upper T/S. PT-OP-K Range of Motion Start: 07/13/24 18:39 Freq: Status: Active Protocol: Document 07/19/24 13:02 LRN (Rec: 07/19/24 17:26 LRN [id number]) Lumbar Spine Range of Motion Lumbar Spine Active Degrees Testing Position Standing Flexion 88 Extension 5 Rotation Left 20 Rotation Right 10 Lateral Flexion Left 15 Lateral Flexion Right 10 Hip Goniometric Range of Motion Hip Right Passive Testing Position Supine Internal Rotation 30 External Rotation 45 Left Passive Testing Position Supine Internal Rotation 30 External Rotation 30 PT-OP-M Strength Start: 07/13/24 18:39 Freq: Status: Active Protocol: Document 07/19/24 13:02 LRN (Rec: 07/19/24 17:26 LRN [id number]) Trunk Strength Trunk Manual Muscle Testing Core Stabilization Pt is not able to maintain core stability with MMT of LE' s. Hip Strength Hip Manual Muscle Testing Right Flexion (L2) 3 Fair Abduction 4 Good Adduction 2- Poor- External Rotation 4+ Good+ Comments Strength is 5/5 except as indicated above. Left Flexion (L2) 3+ Fair+ Abduction 3 Fair Adduction 2+ Poor+ External Rotation 3+ Fair+ Comments Strength is 5/5 except as indicated above. PT-OP-Q Treatments Start: 07/13/24 18:39 Freq: Status: Active Protocol: Document 08/06/24 13:00 LRN (Rec: 08/06/24 13:44 LRN [id number]) Therapeutic Exercises Supine Exercises Wedge/Isolated Kegel Supine Exercise Name Long hold & Quick hold Isolated kegel Reps/Minutes 10 SH/10 SR x 2; 1 SH/2 SR x 10 Wedge/Kegel Reps/Minutes 10 SH/20 SR x 10 ILU massage Supine Exercise Name Bowel massage, teaching f/b pt self ILU massage Reps/Minutes 5x each movement pattern.. Deep Breathing Reps/Minutes 10' Comments Antonio to do properly after training Sitting Exercises Deep Breathing Reps/Minutes 2' Comments Not able to perform properly even with phys & v cuing Self-Care/Home Management Treatment Education Other Education pt education in bowel care with bowel massage, & isolated Kegel on wedge without use of substitute muscles during exercise. Activities Self-Care/Home Management Activities Issued handouts for Bowel Program and ILU bowel massage. PT-OP-T Assessment and Plan Start: 07/13/24 18:39 Freq: Status: Active Protocol: Document 08/06/24 13:00 LRN (Rec: 08/06/24 13:44 LRN [id number]) Physical Therapy Assessment Goals Three Impairment Urinary leakage due to PF weakness. Short Term Goal (STG) Improve hip mobility symmetry and pelvic stabilization to improve pelvic floor strength to generally 2/5. STG Duration 09/17/24 Automation Control Integrator Goal (LTG) Increase PF strength to 3/5 with elimination of urinary leakage and pt able to stop urine flow to give a urine sample while at work. LTG Duration 10/15/24 Two Impairment Urge incontinence Short Term Goal (STG) Pt will be able to defer an urge with use of urge deference technique. 07/26/24: Pt educated in urge deference technique. STG Duration 08/06/24 progressed 07/26/24 Automation Control Integrator Goal (LTG) Pt will be able to get to bathroom first in the morning without urinary leaking. LTG Duration 10/15/24 One Impairment Pt lacks an independent self care HEP. Short Term Goal (STG) Pt educated and able to demonstrate coordination of breath and Kegels with daily transfers to lessen core abdominal pressure. STG Duration 09/03/24 Detention Goal (LTG) Pt will be independent and participating in a self care HEP for PF/hip/pelvis/core strengthening with core pressure mgmt. 07/19/24: HEP: Kegel ex's and discussed exercise of Quick Flicks, Long Holds and Aggravators (cough, sneeze, up first in AM). 07/26/24: HEP: Deep breathing 08/06/24: Handout issued & pt educated in ILU massage. I/S in isolated Kegel on pillows without use of substitute muscles LTG Duration 10/15/24 progressed 08/06/24 Assessment Summary Assessment Pt is not able to deep breath properly in sitting, able to do in supine after training. She is able to perform ILU massage after training. Pt reports no change in voiding with stopping of fluids before bedtime, still waking 2x/ night, with a couple times 1x/ night. Physical Therapy Plan Frequency and Duration Frequency of Treatment 1x/Week Duration of treatment (weeks) 12 Plan of Care Start Date 07/19/24 Plan of Care End Date 10/15/24 Next Visit Focus/Plan Next Note Type Treatment Note Next Visit Plan -Deep breathing training first in supine, then in sitting if not able to do in sitting to start. -Assess if pt needs bladder retaining to decr voiding to 1x/night , and if able to control urge (w/urge technique ) to prevent rushing in bathroom with urge. Next: Pt education of coordinated breathing with transfers, bed mobility and body mechanics using breathwork and core/PF stabilization for proper core pressure management. Educate pt in proper posture with awareness of her postural changes (lordosis, posterior L PSIS, R hip in ER). Ther Ex: PF/core/hip strengthening (hip flex, AB, AD, ER, general core), asymmetry of trunk/hip mobility (decreased trunk R rot/L SB (C-curve, L apex), decreased L>R hip ER PROM). Educate: discuss stool types, foods, educate & discuss proper sit to stand, using breathwork and core/PF stabilization for proper abdominal pressure system. POC: Pt education , self care management, manual therapy (bladder/uterus lift), ?biofeedback with vaginal sensor, therapeutic exercises, therapeutic activities, and neuromuscular reeducation.
--- NOTE | 2024-11-25 15:55 | PT.OPDS ---
Current Diagnoses Constipation, unspecified (08/06/24) Stiffness of unspecified hip, not elsewhere classified (08/06/24) Muscle weakness (generalized) (08/06/24) Mixed incontinence (08/06/24) Unspecified urinary incontinence (08/06/24) Visit Care Team Role Provider Type Sahra Kothari DO Family Provider Physician Specialty: Family Practice Address: [address] [place] [address], [id number] Email: [email or web address] Li Lowe DO Attending Provider Physician Primary Care Provider Referring Provider Specialty: Medical Address: [address] [place] [address], [facility] [address], [place], [address] Email: [email or web address] Visit Number Visit Number 3 Discharge Summary PT-OP-B Current Condition Start: 07/13/24 18:39 Freq: Status: Active Protocol: Document 07/19/24 13:02 LRN (Rec: 07/19/24 17:26 LRN [id number]) Current Condition History of Current Condition Onset Date Worsening urinary incontinence a year ago Current Complaints Urinary leakage with body jerk , lifting heavy objects, OOB first in AM History of Current Condition Pt reports 38 yrs ago after having children she had uinary incontinence with coughing or sneezing, in past yr her leaking has worsened. If her body gets jerked/jolted she leaks and first thing in the mornings if doesn't get out of bed (OOB) immediately she leaks. States she was told she has organ prolapse, but organ unknown. Prior Treatments and Tests None. Treatment Goals Patient/Caregiver Goals Pt goals: -stop urinary leakage. -be able to stop urine flow to get a urine sample. -be able to get to bathroom first in the morning without leaking. -HEP participation. Current Functional Impairments (Reported) Functional Limitations- ADL's Works at [employer] and must take random drug tests, not able to stop flow of urine to collect urine sample. 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 Not limited in when to go to bathroom. Personal Factors Other Personal Factors That May Effect Hx of 2 vaginal births of big Therapy/Recovery babies with tearing (home births), tubal ligation. 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 PT-OP-C Subjective Start: 07/13/24 18:39 Freq: Status: Active Protocol: Document 08/06/24 13:00 LRN (Rec: 08/06/24 13:44 LRN [id number]) OP-PT Subjective Patient Comments Patient Comments Hasn't been doing ex's. Drinking less by stop drinking 1-1.5 hrs before bedtime. Still waking 2x/night, couple times got up 1x/night. PT-OP-I Pelvic Floor Start: 07/13/24 18:39 Freq: Status: Active Protocol: Document 07/19/24 13:02 LRN (Rec: 07/19/24 17:26 LRN [id number]) Pelvic Floor Assessment Urine Urinary Symptoms Urge Sensation,Prolapse, Dribbling After Urination, Incomplete Emptying,Falling Out Feeling/Heavy Leakage Size Small Leakage Cause Cough,Lifting,Sneeze,Urge Other Leakage Causes Urge urinary leakage only first in the morning. Leaks Per Day 4-5x/day Nocturia 2-3x Pads Used In 24 Hours 1 Urine Pad Type Panty Liner Bowel Bowel Movement Frequency 1x/day or missing a day sometimes. [place] Stool Chart Type 1-7 4 Prolapse Cystocele Grade 3 Rectocele Grade 1 Prolapse Comments Standing cystocele grade 3 not past vaginal opening. Perineal Descent Resting Present Bearing Present Contraction Ability Voluntary Contraction Weak Voluntary Relaxation Moderate Manual Muscle Testing Left 2 Manual Muscle Testing Right 3 Manual Muscle Testing Anterior 1 Manual Muscle Testing Posterior 3 Muscle Endurance (Seconds) 3 Number of Quick Contractions In 10 5 Seconds PT-OP-J Posture/Palpation/Skin Start: 07/13/24 18:39 Freq: Status: Active Protocol: Document 07/19/24 13:02 LRN (Rec: 07/19/24 17:26 LRN [id number]) Posture Evaluation Position Standing Head/C-Spine Posture Forward Head L-Spine Posture Increased Lordosis Arm Posture (L) Internally Rotated,(R) Internally Rotated Pelvis Posture Anteriorly Tilted,(L) PSIS Posterior Weight Distribution Balanced Hip Posture (R) Externally Rotated Knee Posture (L) Genu Valgus,(R) Genu Valgus Ankle/Foot Posture (L) Calcaneal Eversion,(R) Calcaneal Eversion Comments Posture Comments C-curve with apex on left, dowagers hump, straightened upper T/S. PT-OP-K Range of Motion Start: 07/13/24 18:39 Freq: Status: Active Protocol: Document 07/19/24 13:02 LRN (Rec: 07/19/24 17:26 LRN [id number]) Lumbar Spine Range of Motion Lumbar Spine Active Degrees Testing Position Standing Flexion 88 Extension 5 Rotation Left 20 Rotation Right 10 Lateral Flexion Left 15 Lateral Flexion Right 10 Hip Goniometric Range of Motion Hip Right Passive Testing Position Supine Internal Rotation 30 External Rotation 45 Left Passive Testing Position Supine Internal Rotation 30 External Rotation 30 PT-OP-M Strength Start: 07/13/24 18:39 Freq: Status: Active Protocol: Document 07/19/24 13:02 LRN (Rec: 07/19/24 17:26 LRN [id number]) Trunk Strength Trunk Manual Muscle Testing Core Stabilization Pt is not able to maintain core stability with MMT of LE' s. Hip Strength Hip Manual Muscle Testing Right Flexion (L2) 3 Fair Abduction 4 Good Adduction 2- Poor- External Rotation 4+ Good+ Comments Strength is 5/5 except as indicated above. Left Flexion (L2) 3+ Fair+ Abduction 3 Fair Adduction 2+ Poor+ External Rotation 3+ Fair+ Comments Strength is 5/5 except as indicated above. PT-OP-T Assessment and Plan Start: 07/13/24 18:39 Freq: Status: Active Protocol: Document 11/25/24 15:55 LRN (Rec: 11/25/24 15:59 LRN [id number]) Physical Therapy Assessment Goals Three Impairment Urinary leakage due to PF weakness. Short Term Goal (STG) Improve hip mobility symmetry and pelvic stabilization to improve pelvic floor strength to generally 2/5. STG Duration 09/17/24 NOT MET GOAL Nursing Home Goal (LTG) Increase PF strength to 3/5 with elimination of urinary leakage and pt able to stop urine flow to give a urine sample while at work. LTG Duration 10/15/24 NOT MET GOAL Two Impairment Urge incontinence Short Term Goal (STG) Pt will be able to defer an urge with use of urge deference technique. 07/26/24: Pt educated in urge deference technique. STG Duration 08/06/24 progressed 07/26/24 , NOT MET GOAL Nursing Home Goal (LTG) Pt will be able to get to bathroom first in the morning without urinary leaking. LTG Duration 10/15/24 NOT MET GOAL One Impairment Pt lacks an independent self care HEP. Short Term Goal (STG) Pt educated and able to demonstrate coordination of breath and Kegels with daily transfers to lessen core abdominal pressure. STG Duration 09/03/24 NOT MET GOAL Dope Sprayer Goal (LTG) Pt will be independent and participating in a self care HEP for PF/hip/pelvis/core strengthening with core pressure mgmt. 07/19/24: HEP: Kegel ex's and discussed exercise of Quick Flicks, Long Holds and Aggravators (cough, sneeze, up first in AM). 07/26/24: HEP: Deep breathing 08/06/24: Handout issued & pt educated in ILU massage. I/S in isolated Kegel on pillows without use of substitute muscles LTG Duration 10/15/24 progressed 08/06/24 , NOT MET GOAL. Assessment Summary Assessment Pt was seen for her initial eval and 2 treatment visits, last visit on 08/06/24. The pt's plan of care on 10/15/24; therefore the pt will need a new referral to return to PT as a new patient. The pt is being discharged due to lack of attendance. Physical Therapy Plan Discharge Physical Therapy Discharge Comments Thank you for your referral.
== END 2024-12-03 09:00 | disposition home or self-care (01) ==
LOC: PHYS 13:00
PROVIDERS: Family Provider Family Medicine; PCP Family Medicine; Referring Provider Family Medicine; Visit Provider Family Medicine
DX: N39.46 Mixed incontinence (principal); M25.659 Stiffness of unspecified hip, not elsewhere classified; M62.81 Muscle weakness (generalized); K59.00 Constipation, unspecified
CPT/HCPCS: 97110; 97162; 97535

== ENCOUNTER → 2025-02-26 08:21 | Outpatient (CLI) | payer OTHER, SELFPAY ==
[2025-02-26 09:21] LABS: Hemoglobin A1C% w Est Avg Glu 5.5 % (4.0-6.0)
[2025-02-26 09:43] LABS: Alanine Aminotransferase 33 IU/L (<35); Albumin 4.3 g/dL (3.5-5.0); Alkaline Phosphatase 77 U/L (38-126); Aspartate Aminotransferase 34 IU/L (14-36); BUN Creatinine Ratio 25.6 (6-22); Bilirubin Total 0.4 mg/dL (0.2-1.3); Blood Urea Nitrogen 21 mg/dL (7-17); Carbon Dioxide 26 mmol/L (22-32); Chloride 102 mmol/L (98-107); Cholesterol 231 mg/dL (140-199); Estimated Glomerular Filt Rate > 60 mL/min (>60); Globulin 2.2 g/dL (1.7-4.1); Glucose 102 mg/dL (70-99); HDL Cholesterol 41 mg/dL (40-60); HEMOLYSIS < 15 (0-50); LDL Cholesterol Calculated 159 mg/dL (<100); Potassium 4.6 mmol/L (3.4-5.1); Sodium 135 mmol/L (137-145); Total Protein 6.5 g/dL (6.3-8.2); Triglycerides 157 mg/dL (35-150)
[2025-02-26 10:00] LABS: Free T3, Triiodothyronine Free 3.28 pg/mL (2.77-5.27)
[2025-02-26 10:14] LABS: TSH w/ Reflex to FT4 1.44 uIU/mL (0.47-4.68)
[2025-02-26 10:19] LABS: Ferritin 284 ng/mL (11-264)
[2025-02-27 08:07] LABS: CRP, High Sensitivity 8.33 mg/L (0.00-3.00)
== END ==
PROVIDERS: PCP Family Medicine; Referring Provider Family Medicine; Visit Provider Family Medicine
DX: Z00.00 Encounter for general adult medical examination without abnormal findings (principal); R53.83 Other fatigue; R73.03 Prediabetes; G47.33 Obstructive sleep apnea (adult) (pediatric); I10 Essential (primary) hypertension; E78.1 Pure hyperglyceridemia
CPT/HCPCS: 36415; 80053; 80061; 82728; 83036; 84443; 84481; 86140

== ENCOUNTER → 2025-03-03 07:33 | Outpatient (CLI) | payer OTHER, SELFPAY ==
--- NOTE | 2025-03-03 07:34 | DI.RAD.S_ITS ---
PROCEDURE: XR FOOT LT MIN 3V INDICATIONS: heel pain TECHNIQUE: 3 views of the foot were acquired. COMPARISON: None. FINDINGS: Bones: No fractures or dislocations. No suspicious bony lesions. Mild hallux valgus metatarsus prima varus alignment and medial bunion. Mild 1st MTP and diffuse interphalangeal joint space narrowing with periarticular osteophyte formation. Mild calcaneal enthesopathy. Soft tissues: No tibiotalar joint effusion. Achilles tendon appears normal. IMPRESSION: 1. Mild hallux valgus alignment and medial bunion. 2 . Mild 1st MTP and diffuse interphalangeal joint degeneration. 3. Mild calcaneal enthesopathy. Dictated by: Jd Garcia [facility] Interpreted: Sari Hernandez MD on 03/05/2025 at 11:53 Transcribed by: [email or web address] on 03/05/2025 at 11:54 Approved by: Sari Hernandez M.D. on 03/07/2025 at 7:42
== END ==
PROVIDERS: PCP Family Medicine; Referring Provider Nurse Practitioner Family; Visit Provider Nurse Practitioner Family
DX: M20.12 Hallux valgus (acquired), left foot (principal); M21.612 Bunion of left foot; M19.072 Primary osteoarthritis, left ankle and foot; M77.32 Calcaneal spur, left foot; M79.672 Pain in left foot
CPT/HCPCS: 73630